=== PATIENT | female | born 1995 | race Caucasian/White ===

== ENCOUNTER 2021-09-01 16:51 | Outpatient (CLI) | payer MEDICAID | END 2021-09-01 16:52 | disposition critical access hospital (66) | LOC: EMS 16:51 | DX: S99.912A Unspecified injury of left ankle, initial encounter (principal); S99.911A Unspecified injury of right ankle, initial encounter; W10.1XXA Fall (on)(from) sidewalk curb, initial encounter; Y93.01 Activity, walking, marching and hiking; Y92.480 Sidewalk as the place of occurrence of the external cause | CPT/HCPCS: A0425; A0427; A0999 ==

== ENCOUNTER 2021-09-01 17:07 | Emergency (ER) | payer MEDICAID, OTHER ==
--- NOTE | 2021-09-01 17:37 | ED Physician Documentation ---
PD HPI LOWER EXT INJURY - Stated complaint Stated Complaint: FALL/ANKLE PX - Chief complaint Chief Complaint: Trauma Ext - History obtained from History obtained from: Patient - History of Present Illness PD HPI LOW EXT INJURY LOCATION: Left, Ankle Type of injury: Twist Where injury occurred: Street Timing - onset: How many hours ago (1) Timing - duration: Hours (1) Timing - details: Abrupt onset Pain level max: 8 Pain level now: 5 Improved by: Rest Worsened by: Moving, Palpating - Additional information Additional information: 26-year-old female states that she stepped off the curb wrong and felt a pop in 1 ankle, then she rolled the other ankle. She received 100 mcg of fentanyl with EMS. PD PAST MEDICAL HISTORY - Present Medications Home Medications: Ambulatory Orders Medication Instructions Recorded Confirmed Bupropion HCl [Wellbutrin Xl] 300 mg PO DAILY 09/01/21 09/01/21 Methylphenidate [Ritalin] 5 mg PO DAILY 09/01/21 09/01/21 - Allergies Allergies/Adverse Reactions: Allergies Allergy/AdvReac Type Severity Reaction Status Date / Time amoxicillin Allergy Rash Verified 09/01/21 17:22 Results - Vitals Vitals: Vital Signs - 24 hr 09/01/21 17:20 Temperature 36.7 C Heart Rate 80 Respiratory 16 Rate Blood Pressure 142/68 H O2 Saturation 98 Oxygen O2 Source Room air
--- NOTE | 2021-09-01 17:57 | XRAY Report ---
PROCEDURE: Ankle 3 View BILAT INDICATIONS: Fall, bilateral ankle pain TECHNIQUE: 3 views of the bilateral ankles. COMPARISON: None. FINDINGS: Right: Mildly displaced posterior malleolus fracture. Obliquely oriented fracture of the distal fibul ar diaphysis extending into the tibiofibular syndesmosis. Widening of the lateral ankle mortise. Larg e ankle joint effusion with circumferential soft tissue swelling. Left: No fracture identified. Widening of the lateral ankle mortise. Moderate size ankle joint effusi on with circumferential soft tissue swelling most pronounced overlying the lateral malleolus. IMPRESSION: Mildly displaced posterior malleolus fracture on the right. Obliquely oriented nondisplaced distal fibular diaphyseal fracture extending into the tibiofibular sy ndesmosis. Widening of the bilateral ankle ankle mortises with large joint effusions and adjacent soft tissue sw elling. Findings are highly suggestive of ligamentous disruption. Reviewed by: Wallace Barros MD on 09/01/2021 5:55 PM PDT Approved by: Wallace Barros MD on 09/01/2021 5:55 PM PDT Station ID: [id number]
[2021-09-01] MEDS ORDERED: oxyCODONE 5 MG TABLET PO STA (18:33)
--- NOTE | 2021-09-01 18:47 | ED Physician Documentation ---
History of Present Illness - Stated complaint Stated Complaint: FALL/ANKLE PX - Chief complaint Chief Complaint: Trauma Ext - History obtained from History obtained from: Patient, EMS - History of Present Illness Timing: Today Pain level max: 10 Pain level now: 8 - Additonal information Additional information: Patient is a 26-year-old female who was brought in by EMS today for bilateral ankle pain. She states that she was walking off of a curb when she excellently rolled and hurt the right ankle. She then rolled her left ankle as well. Has swelling to the bilateral ankles. Received 100 mcg of fentanyl en route. Worse with movement, better with rest. No head injury. No headache. No neck or back pain. Review of Systems Ten Systems: 10 systems reviewed and negative Constitutional: denies: Fever, Chills Cardiac: denies: Chest pain / pressure Respiratory: denies: Cough GI: denies: Abdominal Pain, Nausea, Vomiting, Diarrhea : denies: Now EGA Skin: denies: Rash Musculoskeletal: denies: Neck pain, Back pain Neurologic: denies: Headache PD PAST MEDICAL HISTORY - Past Medical History Past Medical History: No - Past Surgical History Past Surgical History: No - Present Medications Home Medications: Ambulatory Orders Medication Instructions Recorded Confirmed Bupropion HCl [Wellbutrin Xl] 300 mg PO DAILY 09/01/21 09/01/21 Methylphenidate [Ritalin] 5 mg PO DAILY 09/01/21 09/01/21 Oxycodone HCl/Acetaminophen 1 - 2 each PO Q6H PRN #20 tablet 09/01/21 [Percocet 5-325 mg Tablet] - Allergies Allergies/Adverse Reactions: Allergies Allergy/AdvReac Type Severity Reaction Status Date / Time amoxicillin Allergy Rash Verified 09/01/21 17:22 - Living Situation Living Situation: reports: Alone Living Arrangement: reports: At home - Social History Does the pt have substance abuse?: No - Family History Family history: reports: Non contributory PD ED PE NORMAL - Vitals Vital signs reviewed: Yes - General General: Alert and oriented X 3, No acute distress - HEENT HEENT: Moist mucous membranes - Neck Neck: Supple, no meningeal sign - Cardiac Cardiac: RRR, Strong equal pulses - Respiratory Respiratory: No respiratory distress, Clear bilaterally - Abdomen Abdomen: Soft, Non tender, Non distended - Derm Derm: Warm and dry - Extremities Extremities: Other (Tender palpation over the bilateral distal fibula of the bilateral ankles. Swelling over the lateral aspects of both ankles. Neurovascular intact. Normal examination of the feet. Normal proximal tib-fib bilaterally.) - Neuro Neuro: Alert and oriented X 3 - Psych Psych: Normal mood, Normal affect Results - Vitals Vitals: Vital Signs - 24 hr 09/01/21 09/01/21 17:20 19:12 Temperature 36.7 C 36.7 C Heart Rate 80 79 Respiratory 16 16 Rate Blood Pressure 142/68 H 141/65 H O2 Saturation 98 99 Oxygen O2 Source Room air - Labs Labs: Laboratory Tests 09/01/21 19:00 SARS-CoV-2 (PCR) NOT DETECTED - Rads (name of study) Bilateral ankle x-ray Radiology: Final report received, EMP read contemporaneously, See rad report Procedures - Splint (location) Right lower extremity Splint applied by: Physician, Tech Type of splint: Fiberglass, Short leg, Posterior Other: Patient tolerated well, No complications, Neurovascular intact, Crutches provided PD MEDICAL DECISION MAKING - ED course Complexity details: reviewed results, re-evaluated patient, considered differential, d/w patient ED course: Patient is a 26-year-old female who presents to the emergency department bilateral ankle injuries. She has a bimalleolar fracture on the right, disrupted ankle mortises bilaterally. Large joint effusions. Placed in a posterior splint with stirrup on the right lower extremity. Placed in a walking boot on the left lower extremity. Will place on crutches for home. Recommend a wheelchair for home as well. Discussed the case with Dr. Layton, orthopedics who will see the patient in the office tomorrow and plan for surgery on Wednesday. Covid testing performed. Pain well controlled. Neurovascularly intact. I am prescribing a short course of short-acting opioid pain medication for this patient. I have reviewed the patients [employer] and no concerning findings were noted. I have discussed that the opioids are for short term therapy only, and will not be refilled from the ED. patient counseled regarding signs and symptoms for which I believe and urgent re-evaluation would be necessary. Patient with good understanding of and agreement to plan and is comfortable going home at this time This document was made in part using voice recognition software. While efforts are made to proofread this document, sound alike and grammatical errors may occur. IMPRESSION: Mildly displaced posterior malleolus fracture on the right. Obliquely oriented nondisplaced distal fibular diaphyseal fracture extending into the tibiofibular syndesmosis. Widening of the bilateral ankle ankle mortises with large joint effusions and adjacent soft tissue swelling. Findings are highly suggestive of ligamentous disruption. Departure - Departure Disposition: 01 Home, Self Care Clinical Impression: Unstable left ankle, Unstable right ankle Bimalleolar fracture of right ankle Qualifiers: Encounter type: initial encounter Fracture type: closed Qualified Code(s): S82.841A - Displaced bimalleolar fracture of right lower leg, initial encounter for closed fracture Condition: Stable Instructions: ED Fx Lower Ext Follow-Up: Sunil Layton MD [Provider Admit Priv/Credential] - Prescriptions: Oxycodone HCl/Acetaminophen [Percocet 5-325 mg Tablet] 1 - 2 each PO Q6H PRN #20 tablet PRN Reason: pain Comments: I spoke with Dr. Calin lundberg. He wants you to follow-up in the office tomorrow. He states to call at 8 AM and let them know that I spoke with him toño. They will make an appointment for you tomorrow. He will plan on taking her to the operating room on Wednesday. Your prescriptions were sent to [facility] in [place]. You will likely need to rent a wheelchair as well. These are usually available through the [employer] or [employer] I am prescribing a short course of narcotic pain medication for you. These are potentially dangerous and addictive medications that should be used carefully. These medications may constipate you. Take an [id number] stool softener (docusate) twice daily with plenty of water while taking these medications. If you go 24 hours without a bowel movement, take [id number] miralax, per package instructions. Do not drink or drive while taking these medications. If you received narcotic or sedating medications while in the emergency department, do not drive for 24 hours. Store this medication in a safe, secure place and out of reach of children. It is a violation of federal law to give or sell this medication to another rson or to use in a manner other than prescribed. The ED will not refill narcotic prescriptions, including prescriptions lost or stolen. To dispose of unwanted medications: 1. [facility] at [address] in [place] has a medication drop box. They accept prescription medications (in pill form) Wednesday through Wednesday 9:00 a.m. to 5:00 p.m. 2. The [facility] accepts prescription medications (in pill form only) for disposal year round. Call for more information. 3. Contact the [facility] for the next [facility] sponsored prescription drug collection event. , [phone], or [phone]; Discharge Date/Time: 09/01/21 19:25
[2021-09-01 19:14] VITALS: BP 141/65
== END 2021-09-01 19:25 | disposition home or self-care (01) ==
LOC: ED 17:07
DX: S82.841A Displaced bimalleolar fracture of right lower leg, initial encounter for closed fracture (principal); X50.1XXA Overexertion from prolonged static or awkward postures, initial encounter; Y93.01 Activity, walking, marching and hiking; Y92.89 Other specified places as the place of occurrence of the external cause; Z20.822 Contact with and (suspected) exposure to COVID-19
CPT/HCPCS: 29515; 73610; 87635; 99284; A9270

== ENCOUNTER 2021-09-08 08:49 | Outpatient (CLI) | payer MEDICAID ==
--- NOTE | 2021-09-08 11:51 | XRAY Report ---
PROCEDURE: Ankle 3 View RT INDICATIONS: ANKLE FRACTURE TECHNIQUE: 3 views of the ankle were acquired. COMPARISON: 09/01/2021 FINDINGS: Bones again noted is an oblique distal fibular fracture, with slight interval increase in displacemen t. Also noted is a posterior malleolar fracture with slight interval increase in displacement. Displa cement is mild. There is widening of the ankle mortise posteriorly. There is slight widening of the j oint space at the lateral aspect of the articulation between the tibial plafond and the talus. There is also a tiny lateral avulsion off the talus. No suspicious bony lesions. Soft tissues: No tibiotalar joint effusion. Achilles tendon appears normal. IMPRESSION: 1. Slight interval increase in displacement of a oblique distal fibular fracture and posterior malleo lar fracture. 2. Posterior widening of the ankle mortise and lateral widening of the distance between the tibial pl afond and the talus are consistent with some degree of possible instability. 3. Tiny avulsion off the talus. Reviewed by: Ra Quintanilla MD on 09/08/2021 11:50 AM PDT Approved by: Ra Quintanilla MD on 09/08/2021 11:50 AM PDT Station ID: [id number]
== END 2021-09-08 23:59 | disposition home or self-care (01) ==
LOC: DI.WOS 08:49
PROVIDERS: ATTEND Orthopaedic Surgery
DX: S82.844D Nondisplaced bimalleolar fracture of right lower leg, subsequent encounter for closed fracture with routine healing (principal)

== ENCOUNTER 2021-09-10 07:33 | Day surgery (SDC) | payer MEDICAID ==
[2021-09-10] MEDS ORDERED: CELECOXIB 100 MG CAPSULE PO ONE (07:40)
[2021-09-10] MEDS ORDERED: ACETAMINOPHEN 500 MG TABLET PO ONE (07:40)
[2021-09-10] MEDS ORDERED: GABAPENTIN 400 MG CAPSULE ONE (07:40)
[2021-09-10] MEDS ORDERED: CLINDAMYCIN 900 MG/50 ML 50 ML IV ONE (07:41)
[2021-09-10 08:03] LABS: HCG UR QUAL NEGATIVE
[2021-09-10] MEDS ORDERED: LIDOCAINE-MPF 2% 5 ML VIAL ONE ×3 (08:08→08:50)
[2021-09-10] MEDS ORDERED: ROPIVACAINE 0.5% PF 30 ML VIAL ONE (08:08)
[2021-09-10] MEDS ORDERED: MIDAZOLAM 2 MG/2 ML VIAL ONE ×2 (08:08→08:51)
[2021-09-10] MEDS ORDERED: DEXAMETHASONE 10 MG/ML VIAL ONE ×2 (08:09→09:47)
[2021-09-10] MEDS ORDERED: SODIUM CHLORIDE 0.9% 10 ML VIAL IVP ONE (08:09)
[2021-09-10] MEDS ORDERED: LACTATED RINGERS 1,000 ML IV ONE (08:10)
[2021-09-10] MEDS ORDERED: VANCOMYCIN INJ 1 GM, VANCOMYCIN INJ 500 MG in SODIUM CHLORIDE 0.9% 500 ML IV ONE (08:30)
--- NOTE | 2021-09-10 08:37 | ANESTHESIA ---
Pre-Anesthesia VS, & Labs - Diagnosis right ankle fracture - Procedure ORIF Right ankle Vital Signs: Temp Pulse Resp BP Pulse Ox 36.6 C 93 20 131/86 H 98 09/10/21 08:11 09/10/21 08:11 09/10/21 08:11 09/10/21 08:11 09/10/21 08:11 Height: 5 ft 4 in Weight (kg): 106.59 kg Body Mass Index: 40.3 BMI Classification: Morbidly Obese - NPO >8 hours - Is Patient ?: No - Lab Results Lab results reviewed: Yes Home Medications and Allergies Home Medications: Ambulatory Orders Albuterol Sulfate [Proair Respiclick] 90 mcg IH 09/09/21 Methylphenidate HCl [Concerta] 36 mg PO DAILY 09/09/21 Pantoprazole [Protonix] 40 mg PO DAILY 09/09/21 Active Medications Vancomycin HCl 1 gm/Vancomycin HCl 500 mg/ Sodium Chloride 500 mls @ 250 mls/hr IV ONCE ONE Stop: 09/10/21 10:29 Bupropion HCl [Wellbutrin Xl] 300 mg PO DAILY 09/01/21 Albuterol Sulfate [Proair Respiclick] 90 mcg 09/09/21 Methylphenidate HCl [Concerta] 36 mg PO DAILY 09/09/21 Pantoprazole [Protonix] 40 mg PO DAILY 09/09/21 Allergies/Adverse Reactions: Allergies Allergy/AdvReac Type Severity Reaction Status Date / Time amoxicillin Allergy Rash Verified 09/01/21 17:22 Anes History & Medical History - Anesthetic History Anesthesia Complications: reports: No previous complications Family history of Anesthesia Complications: Denies Family history of Malignant Hyperthermia: Denies - Medical History Cardiovascular: reports: None Pulmonary: reports: Asthma Gastrointestinal: reports: GERD Urinary: reports: Kidney stones Musculoskeletal: reports: None Endocrine/Autoimmune: reports: None Skin: reports: Other Exam General: Alert, Oriented x3, Cooperative, No acute distress Dental: WNL Mouth Openin Fingerbreadth Neck Mobility: Normal Mallampati classification: II Respiratory: Lungs clear, Normal breath sounds, No respiratory distress, No accessory muscle use Cardiovascular: Regular rate, Normal S1, Normal S2, No murmurs Plan Anesthesia Type: General, Popliteal Block, Adductor Block Regional Block: Per Surgeon's request for Post Op pain control Consent for Procedure(s) Verified and Reviewed: Yes Code Status: Attempt Resuscitation ASA classification: 3-Severe systemic disease Is this case an emergency?: No
[2021-09-10] MEDS ORDERED: KETOROLAC 15 MG/ML VIAL IVP STA (08:41)
[2021-09-10] MEDS ORDERED: oxyCODONE 5 MG TABLET PO PRN (08:41)
[2021-09-10] MEDS ORDERED: PROPOFOL 200 MG/20 ML VIAL IVP ONE (08:50)
[2021-09-10] MEDS ORDERED: ROCURONIUM 50 MG/5 ML VIAL ONE (08:50)
[2021-09-10] MEDS ORDERED: fentaNYL 100 MCG/2 ML VIAL ONE (08:51)
[2021-09-10] MEDS ORDERED: ATROPINE ABBOJECT 1 MG/10 ML SYRINGE IVP PRN (09:15)
[2021-09-10] MEDS ORDERED: MORPHINE 2 MG/ML CARPUJECT IVP PRN (09:15)
[2021-09-10] MEDS ORDERED: fentaNYL 100 MCG/2 ML VIAL IVP PRN (09:15)
[2021-09-10] MEDS ORDERED: ePHEDrine 50 MG/ML VIAL IVP PRN (09:15)
[2021-09-10] MEDS ORDERED: NALOXONE 0.4 MG/ML VIAL IVP PRN (09:15)
[2021-09-10] MEDS ORDERED: HYDROmorphone 0.5 MG/0.5 ML SYRINGE IVP PRN (09:15)
[2021-09-10] MEDS ORDERED: METOCLOPRAMIDE 10 MG/2 ML VIAL IVP PRN (09:15)
[2021-09-10] MEDS ORDERED: ONDANSETRON 4 MG/2 ML VIAL IVP PRN (09:15)
[2021-09-10] MEDS ORDERED: LACTATED RINGERS 1,000 ML IV SCH (10:00)
[2021-09-10] MEDS ORDERED: VANCOMYCIN 1 GM VIAL ONE (11:06)
[2021-09-10] MEDS ORDERED: VANCOMYCIN 1 GM VIAL MC ONE (11:19)
[2021-09-10] MEDS ORDERED: BUPIVACAINE 0.25% PF 30 ML VIAL ONE (12:06)
--- NOTE | 2021-09-10 12:06 | OPERATIVE REPORT ---
Operative Report - General Procedure Date: 09/10/21 Planned Procedure: Open reductionInternal fixation right ankle bimalleolar fracture Pre-Op Diagnosis: Displaced bimalleolar fracture right ankle Procedure Performed: Open reduction internal fixation lateral malleolus and posterior malleolus right ankle with [place] nephew plates Post Op Diagnosis: Same as preoperative diagnosis - Procedure Note Primary Surgeon: Sunil Layton MD Secondary Surgeon: Krunal CANNON Anesthesia Provider: Mejia Lagos CRNA Anesthesia Technique: General ET tube, Regional block Estimated Blood Loss (mL): 50 Indications: This is a 26-year-old girl with a history of fall and injury to both ankles about a week ago. She had a lateral sprain to her left ankle and a closed, displaced bimalleolar fracture right ankle. She is in relatively good health, history of obesity. Her x-ray of the right ankle showed a fracture of the lateral malleolus at and above the syndesmosis, Tamayo B associated with a posterior malleolar fracture, about 1 to 2 mm step-off. The fibular fracture was shortened approximately 1 to 2 mm. On the lateral view there appeared to be subtle subluxation, tibiotalar. Findings: The lateral malleolar fracture was oblique and located above the ankle mortise within the syndesmosis region. The fracture was not comminuted. The posterior malleolar fracture was in the distal metaphysis and located centrally just above the plafond. The plafond was intact. The syndesmosis appeared to be intact.There was motion that could be obtained at the fracture site of the posterior malleolus. Complications: None - Other Other Information/Narrative: The patient was brought to the operating room. After satisfactory general anesthesia had been obtained, the patient was turned and placed in a prone position on the operating room table with bolsters to pad the torso. A foam ramp was placed beneath the right lower extremity and gel padding beneath the left lower extremity. A pneumatic tourniquet was applied to the proximal right thigh over cast padding. The right lower extremity was prepped and draped in a sterile manner in the usual fashion. A timeout procedure was utilized and the entire operating room team was in agreement. Because of patient allergy to Augmentin, clindamycin and vancomycin were used as prophylactic antibiotics. The right leg was exsanguinated by elevation. The pneumatic tourniquet was elevated 275 mm. An incision was made longitudinally, placed between the lateral malleolus and Achilles tendon. After the skin had been incised, the subcutaneous tissue was exposed using a spreading technique to avoid the sural nerve. The peroneal muscles and tendon were retracted laterally to expose the posterior aspect of the fibula. The fracture was identified of the fibula. The fracture hematoma was removed using a curette and saline irrigation. The fracture was reduced and temporarily stabilized with a K wire transfixing the fracture and a small pointed bone clamp. A one third tubular longitudinal plate was applied to the posterior aspect of the fibula and secured in position with a bone clamp so that C arm radiographs could be obtained. The C arm image intensifier had been covered with a sterile drape. Both AP and lateral views were obtained and show satisfactory alignment of the plate and fracture alignment. Nonlocking cortical screws were inserted above and below fracture with 1 screw transfixing the fracture in a perpendicular fashion. The fixation achieved was excellent and bone quality was good. C arm image x-rays were obtained to confirmed alignment and plate fixation. Next the posterior malleolus was exposed using the interval between the peroneal muscle and flexor hallucis. The flexor hallucis was elevated and retracted in a medial direction in the peroneal muscles in a lateral direction. The posterior aspect of the tibia was exposed. The fracture of the posterior malleolus was identified. The fracture reduced well and was temporarily stabilized with a 2.4 mm T shaped buttress plate. The plate was positioned both by visualization and C arm image x-rays. A K wire was inserted distally to assure that the joint was not violated. The T plate proximally was stabilized with a push pin. Screws were inserted distally and proximally. 2 screws were placed in the horizontal limb of the T and 2 in the vertical limb of the T shaped plate. This provided excellent fixation and alignment. The ankle mortise was stable as well as a syndesmosis. The C arm image x-rays, biplanar, showed good alignment and fixation. The tourniquet was deflated, just over 90 minutes. Hemostasis was achieved with electrocautery. 2 g of vancomycin powder were inserted over the plates. The muscle interval was loosely closed with 0 Vicryl. The subcutaneous tissue was closed with 2-0 strata fix suture. The skin was closed with a 3-0 strata fix subcuticular suture. A well-padded short leg modified Leopoldo Ho dressing with posterior splint was applied to hold the ankle in neutral dorsiflexion. A saphenous nerve block was performed with quarter percent Marcaine, 15 cc subcutaneously. She tolerated procedure well. A physician vector control assistant was utilized to help protection of vital structures, to facilitate retraction and exposure for open reduction internal fixation, wound closure and splint application.
[2021-09-10] MEDS ORDERED: HYDROmorphone 1 MG/ML CARPUJECT ONE (12:11)
[2021-09-10] MEDS ORDERED: BUPIVACAINE 0.25% PF 30 ML VIAL SUBQ ONE (12:15)
[2021-09-10] MEDS ORDERED: LACTATED RINGERS 500 ML IV ONE (12:34)
[2021-09-10] MEDS ORDERED: oxyCODONE 5 MG TABLET ONE (14:03)
[2021-09-10] MEDS ORDERED: KETOROLAC 15 MG/ML VIAL ONE (14:04)
[2021-09-10 14:11] VITALS: BP 125/72
--- NOTE | 2021-09-10 15:11 | ANESTHESIA POST OP EVALUATION ---
Anesthesia Post Eval - Post Anesthesia Eval Vitals: Last Vital Signs Temp 36.4 C L 09/10/21 13:35 Pulse 91 09/10/21 13:58 Resp 16 09/10/21 13:58 BP 125/72 09/10/21 13:58 Pulse Ox 96 09/10/21 13:58 CV Function Including HR & BP: Stable Pain Control: Satisfactory Nausea & Vomiting: Negative Mental Status: Baseline Respiratory Status: Airway Patent Hydration Status: Satisfactory Anesthesia Complications: None
--- NOTE | 2021-09-11 16:40 | XRAY Report ---
PROCEDURE: OR C-Arm Procedure INDICATIONS: ORIF RIGHT ANKLE TECHNIQUE: Intraoperative views were obtained. COMPARISON: Ankle x-ray 09/08/2021 FINDINGS: Intraoperative views demonstrate fixation of the distal fibula as well as posterior medial malleolar fracture. There is good anatomic alignment. Hardware is intact. IMPRESSION: ORIF of distal fibular and posterior malleolar fracture. Reviewed by: Love Sharma MD on 09/11/2021 4:39 PM PDT Approved by: Love Sharma MD on 09/11/2021 4:39 PM PDT Station ID: [id number]
== END 2021-09-10 07:34 | disposition home or self-care (01) ==
LOC: SDS 07:33
PROVIDERS: ATTEND Orthopaedic Surgery
DX: S82.841A Displaced bimalleolar fracture of right lower leg, initial encounter for closed fracture (principal); E66.01 Morbid (severe) obesity due to excess calories; Z68.41 Body mass index [BMI] 40.0-44.9, adult
CPT/HCPCS: 27814; 81025; A9270; C1713; J1170; J3370; J7120

== ENCOUNTER 2021-10-27 07:50 | Outpatient (CLI) | payer MEDICAID ==
--- NOTE | 2021-10-27 14:28 | XRAY Report ---
PROCEDURE: Ankle 3 View RT INDICATIONS: ANKLE ORIF TECHNIQUE: 3 views of the ankle were acquired. COMPARISON: 09/08/2021 plain films FINDINGS: Bones: ORIF of the distal fibula and posterior malleolus. Ankle mortise is normally aligned. No susp icious bony lesions. Soft tissues: No tibiotalar joint effusion. Achilles tendon appears normal. IMPRESSION: Postsurgical sequelae. Reviewed by: Sue Mcmahon MD on 10/27/2021 2:26 PM PDT Approved by: Sue Mcmahon MD on 10/27/2021 2:26 PM PDT Station ID: [id number]
== END 2021-10-27 23:59 | disposition home or self-care (01) ==
LOC: DI.WOS 07:50
PROVIDERS: ATTEND Orthopaedic Surgery
DX: S82.841A Displaced bimalleolar fracture of right lower leg, initial encounter for closed fracture (principal)

== ENCOUNTER 2023-04-29 15:42 | Outpatient (CLI) | payer MEDICAID ==
--- NOTE | 2023-04-30 17:01 | Ultrasound Report ---
PROCEDURE: Pelvic w/Transvaginal INDICATIONS: METRORRHAGIA TECHNIQUE: Real-time scanning was performed of the pelvic organs, with image documentation. Additional endovagi nal scanning was necessary due to incomplete visualization of the adnexal and endometrial structures by transabdominal scanning. COMPARISON: None. FINDINGS: Uterus: Uterus is anteverted and normal in size at 8.3 x 3.3 x 4.4 cm. The myometrium is homogeneou s. The endometrium measures 10.9 mm in combined thickness. Ovaries: The right ovary measures 2.0 x 1.0 x 1.8 cm, with a calculated ovarian volume of 2.8 cc. T he left ovary measures 3.2 x 1.6 x 2.5 cm, with a calculated ovarian volume of 6.5 cc. The ovaries h ave a normal sonographic appearance. Less than 12 follicles can be seen in each ovary. No adnexal m asses are seen. No cystic lesions measuring greater than 3 cm. Other: No pathologic free abdominal or pelvic fluid. IMPRESSION: Unremarkable exam. Reviewed by: Love Sharma MD on 04/30/2023 5:00 PM PST Approved by: Love Sharma MD on 04/30/2023 5:00 PM PST Station ID: [id number]
== END 2023-04-29 15:43 | disposition home or self-care (01) ==
LOC: DI 15:42
PROVIDERS: ATTEND Physician Assistant Medical
DX: N92.1 Excessive and frequent menstruation with irregular cycle (principal)